=== PATIENT | male | born 1945 | race Caucasian/White ===

== ENCOUNTER 2024-08-27 09:00 | Emergency (ER) | payer MEDICARE, OTHER ==
[2024-08-27] MEDS ORDERED: Lidocaine 2% with EPINEPHrine 1:100,000 20 ML MDV INFILT ONE (09:01)
[2024-08-27] MEDS: Sodium Chloride 0.9% 1,000 ML IV SCH (10:45)
[2024-08-27] MEDS ORDERED: Sodium Chloride 0.9% 10 ML Syringe FLUSH PRN (10:51)
[2024-08-27 11:09] LABS: BASOPHILS PERCENT AUTO 0.7 % (0.3-3.8); EOSINOPHILS ABSOLUTE AUTO 0.1 x10-3/uL (0.0-0.6); EOSINOPHILS PERCENT AUTO 1.9 % (0.1-6.8); HEMATOCRIT 45.5 % (38.3-50.1); HEMOGLOBIN 15.4 g/dL (12.9-17.7); LYMPHOCYTES ABSOLUTE AUTO 0.6 x10-3/uL (0.5-4.5); MEAN CORPUSCULAR HEMOGLOBIN 30.1 pg (27.0-33.3); MEAN CORPUSCULAR VOLUME 88.6 fL (80.8-98.7); MEAN PLATELET VOLUME 7.7 fL (6.7-11.0); MONOCYTES ABSOLUTE AUTO 0.5 x10-3/uL (0.0-1.2); MONOCYTES PERCENT AUTO 8.9 % (5.5-15.2); NEUTROPHILS ABSOLUTE AUTO 4.3 x10-3/uL (1.7-6.9); NEUTROPHILS PERCENT AUTO 77.5 % (40.3-71.8); PLATELET COUNT,PLT 166 x10(3)uL (117-477); RED BLOOD CELL COUNT 5.13 x10(6)uL (3.90-5.90); RED CELL DISTRIBUTION WIDTH 15.2 % (12.4-15.0); WHITE BLOOD CELL COUNT,WBC 5.6 x10-3/uL (3.2-10.1)
[2024-08-27 11:12] LABS: BLOOD UREA NITROGEN,BUN 25 mg/dL (7-18); BUN/CREATININE RATIO 17.9 (9-20); CALCIUM 9.6 mg/dL (8.6-10.2); CARBON DIOXIDE,CO2 25 mmol/L (21-32); CHLORIDE,CL 107 mmol/L (100-110); CREATININE 1.4 mg/dL (0.70-1.30); EST CRCL DRUG DOSING (CG) 44.18 mL/min; ESTIMATED GFR 51 mL/min (>60); GLUCOSE RANDOM 128 mg/dL (80-116); SODIUM,NA 142 mmol/L (135-145)
[2024-08-27 11:18] LABS: A/G RATIO 1.2; ALANINE AMINOTRANSFERASE,ALT 47 U/L (12-36); ALBUMIN 3.8 g/dL (3.2-4.6); ALKALINE PHOSPHATASE 91 IU/L (56-112); ASPARTATE AMNIOTRANSFERASE,AST 28 IU/L (5-25); BILIRUBIN TOTAL 0.6 mg/dL (0.1-1.3); MAGNESIUM 2.1 mg/dL (1.8-2.5); PROTEIN TOTAL,TP 7.1 g/dL (6.0-8.0)
[2024-08-27 11:22] LABS: INR 1.22 (1.00-1.24); PROTHROMBIN TIME 12.5 sec (9.0-11.1); PTT,PARTIAL THROMBOPLSTIN TIME 35.3 SECONDS (24.4-33.2)
[2024-08-27] MEDS ORDERED: Tranexamic Acid in NACL,ISO-OS 100 ML IV SCH (12:00)
[2024-08-27] MEDS: Desmopressin 20 MCG in Sodium Chloride 0.9% 50 ML IV ONE (12:30)
[2024-08-27] MEDS ORDERED: Sodium Chloride 0.9% 200 ML ONE (12:41)
== END 2024-08-27 13:40 ==
LOC: FB.ED 09:00
DX: S06.6X9A Traumatic subarachnoid hemorrhage with loss of consciousness of unspecified duration, initial encounter (principal); S01.01XA Laceration without foreign body of scalp, initial encounter; I48.91 Unspecified atrial fibrillation; I10 Essential (primary) hypertension; E78.00 Pure hypercholesterolemia, unspecified; E11.9 Type 2 diabetes mellitus without complications; Z79.899 Other long term (current) drug therapy; Z79.84 Long term (current) use of oral hypoglycemic drugs; W20.8XXA Other cause of strike by thrown, projected or falling object, initial encounter; Y92.039 Unspecified place in apartment as the place of occurrence of the external cause
CPT/HCPCS: 12002; 70450; 72125; 80053; 83735; 85025; 85610; 85730; 93005; 93010; 96361; 96365; 96367; 99285; 99285-25; J2597; J3490; J7030